=== PATIENT | female | born 2000 | race Caucasian/White ===

== ENCOUNTER 2019-04-12 20:00 | Inpatient (IN) | payer OTHER ==
[~2019-04-12] VITALS: Ht 152.4 cm; Wt 47.5 kg
[2019-04-12 21:42] VITALS: BP 108/71; PULSE 87; TEMP 98
[2019-04-12 21:57] LABS: MAGNESIUM 1.9 mg/dL (1.6-2.3); PHOSPHOROUS 3.3 mg/dL (2.5-4.5)
[2019-04-12] MEDS ORDERED: PRILOSEC 20MG20 MG PO (22:02)
[2019-04-12] MEDS ORDERED: TARINA FE 1-201 EAC1 PO (22:04)
[2019-04-12] MEDS ORDERED: MELATONIN5 M1 PO (22:04)
[2019-04-12] MEDS ORDERED: VENTOLIN0.09 MG IH (22:05)
[2019-04-12] MEDS ORDERED: PROAIR HFA0.09 MG/AC IH (22:05)
[2019-04-12] MEDS ORDERED: levothyroxine (22:06)
[2019-04-13] VITALS (8 sets, daily range): BP systolic 88–105; BP diastolic 51–63; PULSE 77–104; TEMP 97.9–98.5
[2019-04-13 02:37] LABS: COLLECTION METHOD CLEAN CATCH
[2019-04-13 02:43] LABS: MUCOUS Present /lpf; PH 5 (5-8); URINE APPEARANCE Clear; URINE BACTERIA None Seen /hpf; URINE BILIRUBIN Negative (NEGATIVE); URINE BLOOD 1+ (NEGATIVE); URINE COLOR Yellow; URINE GLUCOSE Negative (NEGATIVE); URINE KETONE 2+ (NEGATIVE); URINE LEUKOCYTE ESTERASE Negative (NEGATIVE); URINE NITRATE Negative (NEGATIVE); URINE PROTEIN(semi-quant) Negative (NEGATIVE); URINE RBC 0-2 /hpf; URINE UROBILINOGEN Negative (NEGATIVE)
[2019-04-13 06:10] LABS: BASO % 0.4 % (0.0-2.0); EOS % 0.2 % (0-4.0); GRAN # 4.2 (1.4-6.5); GRAN % 73.3 % (42.2-75.2); HEMATOCRIT 38.7 % (35.0-45.0); HEMOGLOBIN 13.3 g/dl (12.0-15.0); LYMPH # 1.2 (1.2-3.4); LYMPH % 21.3 % (20.0-51.0); MEAN CELL VOLUME 92 fl (80.0-95.0); MEAN CORPUSCULAR HEMOGLOBIN 32 pg (26.0-32.0); MEAN CORPUSCULAR HGB CONC 34 g/dl (33.0-37.0); MEAN PLATELET VOLUME 10.5 fl (7.4-10.4); MONO # 0.3 (0.1-0.6); MONO % 4.4 % (1.7-9.3); PLATELET COUNT 189 K/mm3 (130-400); RED BLOOD COUNT 4.21 M/mm3 (4.10-5.30); REDCELL DISTRIBUTION WIDTH-CV 11.3 % (11.5-14.5)
[2019-04-13 06:22] LABS: BILIRUBIN,TOTAL 0.9 mg/dL (0.0-1.0); CALCIUM 8.8 mg/dL (8.4-10.2); CREATININE, serum 0.62 (0.52-1.25); TOTAL PROTEIN 6.6 gm/dL (6.4-8.2)
[2019-04-14 03:41] VITALS: BP 104/84; PULSE 72; TEMP 97.9
[2019-04-14 07:50] VITALS: BP 96/62; PULSE 60; TEMP 97.5
[2019-04-14 11:02] VITALS: BP 103/71; PULSE 82; TEMP 98.2
[2019-04-14 12:06] VITALS: BP 108/57; PULSE 78
[2019-04-14 12:07] VITALS: BP 101/69; BP 111/79; PULSE 83; PULSE 87
[2019-04-14] MEDS ORDERED: KEPPRA1000 MG PO (15:55)
[2019-04-14] MEDS ORDERED: DESYREL 100MG100 MG PO (15:55)
[2019-04-14 16:37] VITALS: BP 105/71; PULSE 79; TEMP 97.9
[2019-04-14] MEDS ORDERED: LAMICTAL 25MG T25 MG PO (16:49)
== END 2019-04-14 20:00 | disposition home or self-care (01) | DRG 101 ==
LOC: MEDICAL 20:00
PROVIDERS: Nurse Practitioner Family; Psychiatry & Neurology Neurology; ADMIT Student in an Organized Health Care Education/Training Program
DX: G40.B09 Juvenile myoclonic epilepsy, not intractable, without status epilepticus (principal); F43.10 Post-traumatic stress disorder, unspecified; F41.9 Anxiety disorder, unspecified; F32.9 Major depressive disorder, single episode, unspecified; G47.00 Insomnia, unspecified; J45.909 Unspecified asthma, uncomplicated; G43.909 Migraine, unspecified, not intractable, without status migrainosus; E73.9 Lactose intolerance, unspecified
CPT/HCPCS: 99222-AI; 99239; A9585; J1953; J2060; J2405; J7030

== ENCOUNTER 2019-04-26 10:58 | Observation (INO) | payer OTHER ==
[~2019-04-26] VITALS: Ht 152.4 cm; Wt 54.0 kg
[~2019-04-26 10:58] MED LIST: DESYREL 100MG100 MG PO; KEPPRA1000 MG PO; LAMICTAL 25MG T25 MG PO; MELATONIN5 M1 PO; PRILOSEC 20MG20 MG PO; PROAIR HFA0.09 MG/AC IH; TARINA FE 1-201 EAC1 PO; VENTOLIN0.09 MG IH; levothyroxine
[2019-04-26 11:36] LABS: BASO % 0.3 % (0.0-2.0); EOS % 0.3 % (0-4.0); GRAN # 7.7 (1.4-6.5); GRAN % 85.9 % (42.2-75.2); HEMOGLOBIN 13.5 g/dl (12.0-15.0); LYMPH % 11.1 % (20.0-51.0); MEAN CELL VOLUME 92 fl (80.0-95.0); MEAN CORPUSCULAR HEMOGLOBIN 32 pg (26.0-32.0); MEAN CORPUSCULAR HGB CONC 35 g/dl (33.0-37.0); MEAN PLATELET VOLUME 10.7 fl (7.4-10.4); MONO # 0.2 (0.1-0.6); MONO % 2.2 % (1.7-9.3); PLATELET COUNT 211 K/mm3 (130-400); RED BLOOD COUNT 4.26 M/mm3 (4.10-5.30); REDCELL DISTRIBUTION WIDTH-CV 11.8 % (11.5-14.5)
[2019-04-26 11:53] LABS: ALANINE AMINOTRANSFERASE < 6 U/L (9-52); ALBUMIN 4.4 gm/dL (3.5-5.0); ALKALINE PHOSPHATASE 34 U/L (50-136); ANION GAP 14 mmol/L (7-16); AST,SGOT 22 U/L (15-37); BILIRUBIN,TOTAL 0.7 mg/dL (0.0-1.0); BLOOD UREA NITROGEN 8 mg/dL (7-17); CALCIUM 9.2 mg/dL (8.4-10.2); CARBON DIOXIDE 20 mmol/L (22-30); CHLORIDE 106 mmol/L (98-107); CREATININE, serum 0.68 (0.52-1.25); GLUCOSE 81 mg/dL (74-106); POTASSIUM 3.7 mmol/L (3.4-5.0); SODIUM 140 mmol/L (137-145); TOTAL PROTEIN 7.1 gm/dL (6.4-8.2)
[2019-04-26 11:54] LABS: C-REACTIVE PROTEIN < 0.5 mg/dL (0.0-0.9)
[2019-04-26 12:56] LABS: COLLECTION METHOD CLEAN CATCH
[2019-04-26 13:05] LABS: MUCOUS Present /lpf; PH 5 (5-8); URINE APPEARANCE Hazy; URINE BACTERIA Rare /hpf; URINE BILIRUBIN Negative (NEGATIVE); URINE BLOOD 1+ (NEGATIVE); URINE COLOR Yellow; URINE GLUCOSE Negative (NEGATIVE); URINE KETONE 1+ (NEGATIVE); URINE LEUKOCYTE ESTERASE Trace (NEGATIVE); URINE NITRATE Negative (NEGATIVE); URINE PROTEIN(semi-quant) Negative (NEGATIVE); URINE RBC 0-2 /hpf; URINE UROBILINOGEN Negative (NEGATIVE)
[2019-04-26 14:43] VITALS: BP 110/62; PULSE 89; TEMP 98.9
--- NOTE | 2019-04-26 15:20 | NUR ---
Pt up to room 318. Pt A&O. Denies dizziness, chest pain, N/V/D, SOB at this time. C/O right leg weakness. Pt has RAC IV, flushes with no complications. Seizure precautions in place. Admission, med rec, allergies completed. Pt voices no other concerns at this time. Pt started to get sleepy by end of admission process. Call light within reach. Hospitalist aware of Pt arrival to floor.
[2019-04-26 15:47] VITALS: BP 105/69; PULSE 89; TEMP 98.1
[2019-04-26 19:30] VITALS: BP 113/69; PULSE 110; TEMP 97.7
[2019-04-27] VITALS (8 sets, daily range): BP systolic 87–123; BP diastolic 47–75; PULSE 81–100; TEMP 97.8–99
[2019-04-27 06:34] LABS: BASO % 0.5 % (0.0-2.0); EOS # 0.1 (0.0-0.7); EOS % 1.6 % (0-4.0); GRAN # 2.4 (1.4-6.5); GRAN % 53.8 % (42.2-75.2); HEMOGLOBIN 12.8 g/dl (12.0-15.0); LYMPH # 1.6 (1.2-3.4); LYMPH % 36.4 % (20.0-51.0); MEAN CELL VOLUME 92 fl (80.0-95.0); MEAN CORPUSCULAR HEMOGLOBIN 32 pg (26.0-32.0); MEAN CORPUSCULAR HGB CONC 35 g/dl (33.0-37.0); MEAN PLATELET VOLUME 11.1 fl (7.4-10.4); MONO # 0.3 (0.1-0.6); MONO % 7.5 % (1.7-9.3); PLATELET COUNT 201 K/mm3 (130-400); RED BLOOD COUNT 3.99 M/mm3 (4.10-5.30); REDCELL DISTRIBUTION WIDTH-CV 11.8 % (11.5-14.5)
[2019-04-27 06:53] LABS: CALCIUM 8.4 mg/dL (8.4-10.2); CREATININE, serum 0.52 (0.52-1.25); POTASSIUM 3.7 mmol/L (3.4-5.0)
[2019-04-27 07:07] LABS: HEMATOCRIT 36.6 % (35.0-45.0)
--- NOTE | 2019-04-27 10:12 | NUR ---
[place] met with the patient to discuss discharge plan. The patient lives in [place] with her ex-boyfriend's (Chilo) parents, Jennifer Arnold (ph#[phone]) and Hilario, and their other son (Boni). Her mother and step-father live back in [place] and she states that she tries not have contact with them, due to them doing drugs and alcohol. She is a student at [employer]. SW attempted to notify [employer] to notify them of the patient's hospitalization. SW left a voicemail. She reports independence with ADLs and does not have any DME. The patient's PCP is Dr. Mayberry at [facility] and she receives her medications at the [facility]. She reports no difficulties obtaining her meds. The patient states that her emergency contact is Jennifer. The patient plans to return back home with Jennifer and Pino upon discharge. No other identified needs at this time.
--- NOTE | 2019-04-27 10:24 | NUR ---
Pt assessment completed and charted. Morning medications administered. Pt has not experienced any seizure activity overnight or this morning. Pt being assisted to bathroom by nursing staff. Per pt, she feels "better today, just sleepy". LAC IV flushes with no complications. Pt on seizure precautions, neuro checks fine. No other concerns voiced at this time. Call light within reach.
--- NOTE | 2019-04-27 11:19 | NUR ---
First visit from the vehicle inspector. No needs right now.
--- NOTE | 2019-04-27 15:41 | NUR ---
Pt having uneventful day, resting off and on throughout day. Neuro checks are WNL. No seizure activity throughout day thus far.
[2019-04-28 03:29] VITALS: BP 98/61; PULSE 98; TEMP 98.2
[2019-04-28 06:18] LABS: BASO % 0.4 % (0.0-2.0); EOS # 0.1 (0.0-0.7); EOS % 2.3 % (0-4.0); GRAN # 2.9 (1.4-6.5); GRAN % 57.1 % (42.2-75.2); HEMATOCRIT 38.8 % (35.0-45.0); HEMOGLOBIN 13.1 g/dl (12.0-15.0); LYMPH # 1.7 (1.2-3.4); LYMPH % 33.2 % (20.0-51.0); MEAN CELL VOLUME 92 fl (80.0-95.0); MEAN CORPUSCULAR HEMOGLOBIN 31 pg (26.0-32.0); MEAN CORPUSCULAR HGB CONC 34 g/dl (33.0-37.0); MEAN PLATELET VOLUME 10.6 fl (7.4-10.4); MONO # 0.4 (0.1-0.6); PLATELET COUNT 204 K/mm3 (130-400)
[2019-04-28 06:34] LABS: CALCIUM 8.6 mg/dL (8.4-10.2); CREATININE, serum 0.55 (0.52-1.25); POTASSIUM 3.6 mmol/L (3.4-5.0)
[2019-04-28 08:51] VITALS: BP 107/64; PULSE 77; TEMP 98.5
[2019-04-28] MEDS ORDERED: DEPAKOTE ER 50500 MG PO (09:10)
--- NOTE | 2019-04-28 10:42 | NUR ---
Pt assessment completed and charted, morning medications administered per MAR. Pt denies pain, SOB, N/V. No seizure activity reported overnight, the day before or thus far this shift. Pt stated she feels a little dizzy but hasn't been getting up much. RAC INT IV flushes with no complications. No other concerns voiced at this time. Pt awaiting discharge.
--- NOTE | 2019-04-28 11:07 | NUR ---
Pt discharge instructions discussed and reviewed with patient who verbalized understanding. RAC INT IV dc'd with catheter tip intact and no complications noted. Pt escorted out via WC with family at side by joselin De León. No other concerns voiced, all questions answered.
== END 2019-04-28 11:44 | disposition home or self-care (01) ==
LOC: COL.ER 10:58 → MEDICAL 12:50
PROVIDERS: Family Medicine; Physician Assistant; ADMIT Hospitalist
DX: G40.309 Generalized idiopathic epilepsy and epileptic syndromes, not intractable, without status epilepticus (principal); G47.00 Insomnia, unspecified; J45.909 Unspecified asthma, uncomplicated; F43.10 Post-traumatic stress disorder, unspecified; F41.9 Anxiety disorder, unspecified; F32.9 Major depressive disorder, single episode, unspecified; G43.909 Migraine, unspecified, not intractable, without status migrainosus; E73.9 Lactose intolerance, unspecified; Z63.5 Disruption of family by separation and divorce
CPT/HCPCS: G0378; J1953; J2060; J7030

== ENCOUNTER 2020-06-09 08:00 | Emergency (ER) | payer OTHER ==
[~2020-06-09] VITALS: Ht 152.4 cm; Wt 50.0 kg
[~2020-06-09 08:00] MED LIST changes: +DEPAKOTE ER 50500 MG PO; +PREDNISONE20 MG PO; +TUSS PO
[2020-06-09 08:01] VITALS: TEMP 97
[2020-06-09 08:20] LABS: BASO % 0.2 % (0.0-2.0); EOS % 0.2 % (0-4.0); GRAN % 89.5 % (42.2-75.2); HEMATOCRIT 46.1 % (35.0-45.0); HEMOGLOBIN 15.7 g/dl (12.0-15.0); LYMPH # 0.7 (1.2-3.4); LYMPH % 4.8 % (20.0-51.0); MEAN CELL VOLUME 93 fl (80.0-95.0); MEAN CORPUSCULAR HEMOGLOBIN 32 pg (26.0-32.0); MEAN CORPUSCULAR HGB CONC 34 g/dl (33.0-37.0); MEAN PLATELET VOLUME 10.7 fl (7.4-10.4); MONO # 0.7 (0.1-0.6); MONO % 4.7 % (1.7-9.3); PLATELET COUNT 239 K/mm3 (130-400); RED BLOOD COUNT 4.96 M/mm3 (4.10-5.30); REDCELL DISTRIBUTION WIDTH-CV 11.3 % (11.5-14.5)
[2020-06-09] MEDS ORDERED: TOPAMAX 25MG25 M1 PO (08:33)
[2020-06-09 08:34] LABS: ALBUMIN 4.9 gm/dL (3.5-5.0); BILIRUBIN,TOTAL 0.7 mg/dL (0.0-1.0); CALCIUM 9.7 mg/dL (8.4-10.2); CREATININE, serum 0.74 (0.52-1.25); POTASSIUM 4.1 mmol/L (3.4-5.0); TOTAL PROTEIN 7.9 gm/dL (6.4-8.2)
[2020-06-09 08:50] LABS: PROLACTIN 37.3 ng/mL (3.0-18.6)
[2020-06-09 10:39] VITALS: BP 92/69; PULSE 95
[2020-06-09 10:41] LABS: COLLECTION METHOD CLEAN CATCH
[2020-06-09 10:47] LABS: MUCOUS Present /lpf; PH 6 (5-8); URINE APPEARANCE Hazy; URINE BACTERIA Rare /hpf; URINE BILIRUBIN Negative (NEGATIVE); URINE BLOOD 1+ (NEGATIVE); URINE COLOR Yellow; URINE GLUCOSE Negative (NEGATIVE); URINE KETONE Trace (NEGATIVE); URINE LEUKOCYTE ESTERASE Trace (NEGATIVE); URINE NITRATE Negative (NEGATIVE); URINE PROTEIN(semi-quant) Negative (NEGATIVE); URINE RBC 0-2 /hpf; URINE UROBILINOGEN Negative (NEGATIVE)
[2020-06-09] MEDS ORDERED: ZOFRAN ODT4 MG PO (10:47)
== END 2020-06-09 11:00 | disposition home or self-care (01) ==
LOC: COL.ER 08:00
PROVIDERS: Family Medicine
DX: G40.909 Epilepsy, unspecified, not intractable, without status epilepticus (principal); G43.909 Migraine, unspecified, not intractable, without status migrainosus; Z88.8 Allergy status to other drugs, medicaments and biological substances
CPT/HCPCS: J0780; J1100; J1885; J7120

== ENCOUNTER 2020-06-10 09:25 | Emergency (ER) | payer OTHER ==
[~2020-06-10] VITALS: Ht 152.4 cm; Wt 47.3 kg
[~2020-06-10 09:25] MED LIST changes: +TOPAMAX 25MG25 M1 PO; +ZOFRAN ODT4 MG PO
[2020-06-10 09:51] VITALS: TEMP 98.6
[2020-06-10 11:00] LABS: BASO % 0.1 % (0.0-2.0); EOS # 0.1 (0.0-0.7); EOS % 1.4 % (0-4.0); GRAN # 5.8 (1.4-6.5); GRAN % 79.1 % (42.2-75.2); HEMATOCRIT 44.4 % (35.0-45.0); HEMOGLOBIN 15.3 g/dl (12.0-15.0); LYMPH # 0.7 (1.2-3.4); MEAN CELL VOLUME 91 fl (80.0-95.0); MEAN CORPUSCULAR HEMOGLOBIN 31 pg (26.0-32.0); MEAN CORPUSCULAR HGB CONC 35 g/dl (33.0-37.0); MEAN PLATELET VOLUME 10.5 fl (7.4-10.4); MONO # 0.7 (0.1-0.6); MONO % 9.3 % (1.7-9.3); PLATELET COUNT 241 K/mm3 (130-400); RED BLOOD COUNT 4.89 M/mm3 (4.10-5.30); REDCELL DISTRIBUTION WIDTH-CV 11.3 % (11.5-14.5)
[2020-06-10 11:15] LABS: ALBUMIN 4.8 gm/dL (3.5-5.0); C-REACTIVE PROTEIN 0.8 mg/dL (0.0-0.9); CALCIUM 9.5 mg/dL (8.4-10.2); CREATININE, serum 0.8 (0.52-1.25); POTASSIUM 3.5 mmol/L (3.4-5.0); TOTAL PROTEIN 7.7 gm/dL (6.4-8.2)
[2020-06-10 12:15] LABS: COLLECTION METHOD CLEAN CATCH
[2020-06-10 12:22] LABS: MUCOUS Present /lpf; PH 5 (5-8); SQUAMOUS EPITHELIAL 0-2 /hpf; URINE APPEARANCE Hazy; URINE BACTERIA None Seen /hpf; URINE BILIRUBIN Negative (NEGATIVE); URINE BLOOD 1+ (NEGATIVE); URINE COLOR Yellow; URINE GLUCOSE Negative (NEGATIVE); URINE KETONE Negative (NEGATIVE); URINE LEUKOCYTE ESTERASE Negative (NEGATIVE); URINE NITRATE Negative (NEGATIVE); URINE PROTEIN(semi-quant) Negative (NEGATIVE); URINE RBC 0-2 /hpf; URINE UROBILINOGEN Negative (NEGATIVE)
[2020-06-10 13:02] VITALS: BP 91/60; PULSE 91
[2020-06-11] MEDS ORDERED: PHENERGAN 25 TA25 MG PO (06:27)
== END 2020-06-10 13:04 | disposition home or self-care (01) ==
LOC: COL.ER 09:25
PROVIDERS: Nurse Practitioner
DX: R11.2 Nausea with vomiting, unspecified (principal); R19.7 Diarrhea, unspecified; G40.909 Epilepsy, unspecified, not intractable, without status epilepticus; Z88.8 Allergy status to other drugs, medicaments and biological substances
CPT/HCPCS: J7030

== ENCOUNTER 2020-06-11 05:01 | Emergency (ER) | payer OTHER ==
[~2020-06-11] VITALS: Ht 152.4 cm; Wt 47.3 kg
[2020-06-11 05:05] VITALS: TEMP 98.1
[2020-06-11 05:30] LABS: BASO % 0.1 % (0.0-2.0); EOS # 0.1 (0.0-0.7); EOS % 0.8 % (0-4.0); GRAN # 5.4 (1.4-6.5); HEMATOCRIT 43.5 % (35.0-45.0); LYMPH # 1.4 (1.2-3.4); LYMPH % 19.1 % (20.0-51.0); MEAN CELL VOLUME 93 fl (80.0-95.0); MEAN CORPUSCULAR HEMOGLOBIN 32 pg (26.0-32.0); MEAN CORPUSCULAR HGB CONC 35 g/dl (33.0-37.0); MEAN PLATELET VOLUME 10.8 fl (7.4-10.4); MONO # 0.5 (0.1-0.6); MONO % 6.9 % (1.7-9.3); PLATELET COUNT 227 K/mm3 (130-400); RED BLOOD COUNT 4.66 M/mm3 (4.10-5.30); REDCELL DISTRIBUTION WIDTH-CV 11.7 % (11.5-14.5)
[2020-06-11 05:40] LABS: ALBUMIN 4.6 gm/dL (3.5-5.0); BILIRUBIN,TOTAL 0.7 mg/dL (0.0-1.0); C-REACTIVE PROTEIN 0.7 mg/dL (0.0-0.9); CALCIUM 9.2 mg/dL (8.4-10.2); CREATININE, serum 0.87 (0.52-1.25); POTASSIUM 3.4 mmol/L (3.4-5.0); TOTAL PROTEIN 7.4 gm/dL (6.4-8.2)
[2020-06-11 05:45] LABS: COLLECTION METHOD CLEAN CATCH
[2020-06-11 05:53] LABS: MUCOUS Present /lpf; PH 5 (5-8); SQUAMOUS EPITHELIAL 20-50 /hpf; URINE APPEARANCE Cloudy; URINE BACTERIA Occasional /hpf; URINE BILIRUBIN Negative (NEGATIVE); URINE BLOOD 1+ (NEGATIVE); URINE COLOR Yellow; URINE GLUCOSE Negative (NEGATIVE); URINE KETONE Negative (NEGATIVE); URINE LEUKOCYTE ESTERASE Trace (NEGATIVE); URINE NITRATE Negative (NEGATIVE); URINE PROTEIN(semi-quant) Negative (NEGATIVE); URINE UROBILINOGEN Negative (NEGATIVE)
[2020-06-11] MEDS ORDERED: PHENERGAN 25 TA25 MG PO (06:27)
[2020-06-11 08:38] VITALS: BP 102/64; PULSE 88
== END 2020-06-11 08:45 | disposition home or self-care (01) ==
LOC: COL.ER 05:01
PROVIDERS: Emergency Medicine
DX: R19.7 Diarrhea, unspecified (principal); R11.2 Nausea with vomiting, unspecified; R56.9 Unspecified convulsions; Z32.02 Encounter for pregnancy test, result negative; Z88.8 Allergy status to other drugs, medicaments and biological substances
CPT/HCPCS: J2550; J7030; Q9967

== ENCOUNTER 2020-09-14 09:36 | Emergency (ER) | payer OTHER ==
[~2020-09-14] VITALS: Ht 149.9 cm; Wt 45.5 kg
[~2020-09-14 09:36] MED LIST changes: +PHENERGAN 25 TA25 MG PO
[2020-09-14 09:37] VITALS: TEMP 98.3
[2020-09-14 10:05] LABS: BASO % 0.4 % (0.0-2.0); EOS # 0.1 (0.0-0.7); GRAN # 3.4 (1.4-6.5); GRAN % 70.6 % (42.2-75.2); HEMOGLOBIN 14.7 g/dl (12.5-16.0); LYMPH # 1.1 (1.2-3.4); LYMPH % 22.8 % (20.0-51.0); MEAN CELL VOLUME 91 fl (80.0-100.0); MEAN CORPUSCULAR HEMOGLOBIN 32 pg (27.0-31.0); MEAN CORPUSCULAR HGB CONC 35 g/dl (33.0-37.0); MEAN PLATELET VOLUME 10.5 fl (7.4-10.4); MONO # 0.2 (0.1-0.6); MONO % 4.8 % (1.7-9.3); PLATELET COUNT 228 K/mm3 (130-400); RED BLOOD COUNT 4.62 M/mm3 (4.10-5.30); REDCELL DISTRIBUTION WIDTH-CV 11.9 % (11.5-14.5)
[2020-09-14 10:10] LABS: ALANINE AMINOTRANSFERASE 15 U/L (4-34); ALBUMIN 4.4 gm/dL (3.5-5.0); ALKALINE PHOSPHATASE 43 U/L (50-136); ANION GAP 4 mmol/L (7-16); AST,SGOT 24 U/L (15-37); BILIRUBIN,TOTAL 0.7 mg/dL (0.0-1.0); BLOOD UREA NITROGEN 14 mg/dL (7-17); CALCIUM 9.3 mg/dL (8.4-10.2); CARBON DIOXIDE 27 mmol/L (22-30); CHLORIDE 107 mmol/L (98-107); CREATININE, serum 0.61 (0.52-1.25); GLUCOSE 95 mg/dL (74-106); SODIUM 138 mmol/L (137-145); TOTAL PROTEIN 7.2 gm/dL (6.4-8.2)
[2020-09-14 10:11] LABS: ALCOHOL(ethanol),MEDICAL < 10 mg/dL
[2020-09-14 10:44] LABS: COLLECTION METHOD CLEAN CATCH
[2020-09-14 10:50] LABS: MUCOUS Present /lpf; PH 5 (5-8); URINE APPEARANCE Hazy; URINE BACTERIA Rare /hpf; URINE BILIRUBIN Negative (NEGATIVE); URINE BLOOD 1+ (NEGATIVE); URINE COLOR Yellow; URINE GLUCOSE Negative (NEGATIVE); URINE KETONE Negative (NEGATIVE); URINE LEUKOCYTE ESTERASE 2+ (NEGATIVE); URINE NITRATE Negative (NEGATIVE); URINE PROTEIN(semi-quant) Negative (NEGATIVE); URINE UROBILINOGEN Negative (NEGATIVE)
[2020-09-14 10:58] LABS: TRICYCLIC ANTIDEPRESS URINE NEGATIVE
[2020-09-14 12:23] VITALS: BP 110/71; PULSE 93
== END 2020-09-14 12:04 | disposition home or self-care (01) ==
LOC: COL.ER 09:36
PROVIDERS: Emergency Medicine
DX: G43.419 Hemiplegic migraine, intractable, without status migrainosus (principal); Z88.8 Allergy status to other drugs, medicaments and biological substances

== ENCOUNTER 2020-09-24 13:15 | Emergency (ER) | payer OTHER ==
[~2020-09-24] VITALS: Ht 152.4 cm; Wt 52.0 kg
[2020-09-24 15:36] VITALS: BP 100/68; PULSE 83; TEMP 98.2
== END 2020-09-24 15:36 | disposition home or self-care (01) ==
LOC: COL.ER 13:15
DX: S90.111A Contusion of right great toe without damage to nail, initial encounter (principal); Z88.8 Allergy status to other drugs, medicaments and biological substances; W22.8XXA Striking against or struck by other objects, initial encounter; Y92.89 Other specified places as the place of occurrence of the external cause; Y99.0 Civilian activity done for income or pay

== ENCOUNTER 2020-09-29 10:47 | Emergency (ER) | payer OTHER ==
[~2020-09-29] VITALS: Ht 152.4 cm; Wt 51.4 kg
[2020-09-29 13:18] VITALS: BP 110/64; PULSE 98; TEMP 98.7
[2020-09-29 13:22] LABS: STREP SCREEN NEGATIVE
== END 2020-09-29 13:19 | disposition home or self-care (01) ==
LOC: COL.ER 10:47
PROVIDERS: Physician Assistant
DX: B34.9 Viral infection, unspecified (principal); G40.909 Epilepsy, unspecified, not intractable, without status epilepticus; Z20.822 Contact with and (suspected) exposure to COVID-19; Z88.8 Allergy status to other drugs, medicaments and biological substances

== ENCOUNTER 2020-10-16 21:22 | Emergency (ER) | payer OTHER ==
[~2020-10-16] VITALS: Ht 152.4 cm; Wt 51.8 kg
[2020-10-16 21:26] VITALS: TEMP 98.9
[2020-10-16 23:40] VITALS: BP 116/74; PULSE 74
== END 2020-10-16 23:40 | disposition home or self-care (01) ==
LOC: COL.ER 21:22
DX: H91.93 Unspecified hearing loss, bilateral (principal); G40.909 Epilepsy, unspecified, not intractable, without status epilepticus; Z88.1 Allergy status to other antibiotic agents; Z91.040 Latex allergy status
CPT/HCPCS: J2060